=== PATIENT | male | born 1985 | race African-American/Black ===

== ENCOUNTER 2024-11-17 12:06 | Emergency (ER) | payer BC, OTHER ==
[~2024-11-17] VITALS: Ht 180.3 cm; Wt 123.8 kg
[2024-11-17] MEDS ORDERED: NAPROXEN 500 MG TABLET ONE (13:19)
[2024-11-17] MEDS ORDERED: OXYCODONE/APAP 5-325 MG TABLET ONE (13:19)
[2024-11-17] MEDS: NAPROXEN 500 MG TABLET PO ONE (13:21)
[2024-11-17] MEDS: OXYCODONE/APAP 5-325 MG TABLET PO ONE (13:21)
[2024-11-17 14:00] VITALS: BP 136/68
[2024-11-17] MEDS ORDERED: OXYC-128 PO (14:43)
[2024-11-17] MEDS ORDERED: NAPR500T6 PO (14:43)
[2024-11-17 14:59] VITALS: BP 136/68; O2SAT 98
== END 2024-11-17 14:59 | disposition home or self-care (01) ==
LOC: ER 12:06
DX: M25.552 Pain in left hip (principal); S39.012A Strain of muscle, fascia and tendon of lower back, initial encounter; I10 Essential (primary) hypertension; E88.810 Metabolic syndrome; F17.200 Nicotine dependence, unspecified, uncomplicated; Z87.81 Personal history of (healed) traumatic fracture; Z88.8 Allergy status to other drugs, medicaments and biological substances; Z91.040 Latex allergy status
CPT/HCPCS: 72100; 73502; A4606; A4663